=== PATIENT | male | born 2000 | race Caucasian/White ===

== ENCOUNTER 2020-05-29 12:24 | Outpatient (RCR) | payer OTHER, SELFPAY ==
[2015-11-15 01:46] VITALS: BMI 16.4
== END 2020-07-30 23:59 ==
LOC: IMMUN 12:24
PROVIDERS: PCP Pediatrics; Visit Provider Family Medicine
DX: Z23 Encounter for immunization (principal)
CPT/HCPCS: 0001A; 0002A; 91300